=== PATIENT | male | born 1960 | race African-American/Black ===

== ENCOUNTER 2018-09-20 10:34 | Emergency (ER) | payer SELFPAY ==
[~2018-09-20] VITALS: Ht 188 cm; Wt 80.0 kg
[2018-09-20 10:56] VITALS: BP 115/72
[2018-09-20] MEDS ORDERED: KETOROLAC 60MG/2ML VIAL IM STA (11:54)
[2018-09-20] MEDS ORDERED: LIDOCAINE HCL/PF 1% 10 MG/ML 5ML VIAL IJ ONE (12:00)
[2018-09-20] MEDS ORDERED: BACITRACIN ZINC OINT UDPKT TOP ONE ×2 (12:00→14:00)
== END 2018-09-20 14:01 | disposition home or self-care (01) ==
LOC: ER 10:34
DX: S60.561A Insect bite (nonvenomous) of right hand, initial encounter (principal); L02.511 Cutaneous abscess of right hand; E78.00 Pure hypercholesterolemia, unspecified; F17.200 Nicotine dependence, unspecified, uncomplicated; Z91.018 Allergy to other foods; W57.XXXA Bitten or stung by nonvenomous insect and other nonvenomous arthropods, initial encounter; Y93.89 Activity, other specified; Y92.89 Other specified places as the place of occurrence of the external cause; Y99.8 Other external cause status
CPT/HCPCS: 99283; J1885; J3490; Z7610

== ENCOUNTER 2018-09-22 13:01 | Inpatient (IN) | payer SELFPAY ==
[~2018-09-22] VITALS: Ht 188 cm; Wt 78.9 kg
[2018-09-22] MEDS ORDERED: PIPERACILLIN/TAZ 3.375G PREMIX 50 ML IV ONE (15:15)
[2018-09-22] MEDS ORDERED: SODIUM CHLORIDE 0.9% 1000ML BAG (SEPSIS BOLUS) IV ONE (15:15)
[2018-09-22] MEDS ORDERED: VANCOMYCIN 1 G PREMIX 200 ML IV ONE (15:15)
[2018-09-22 15:36] LABS: EOSINOPHILS % 2.6 % (0.0-5.0); HEMATOCRIT. 39.9 % (42.0-52.0); HEMOGLOBIN. 13.3 g/dL (14.0-18.0); LYMPHOCYTES % 18.7 % (20.0-50.0); MEAN CORPUSCULAR HEMOGLOBIN 25.2 pg (28.0-32.0); MEAN CORPUSCULAR VOLUME 75.8 fL (80.0-94.0); MEAN PLATELET VOLUME 8.1 fl (7.4-10.4); MONOCYTES % 8.5 % (2.0-8.0); NEUTROPHILS % 69.2 % (40.0-76.0); PLATELET 528 x1000/uL (130-400); RED BLOOD CELL COUNT 5.27 mill/uL (4.7-6.1); RED CELL DISTRIBUTION WIDTH 16.4 % (11.6-14.6)
[2018-09-22 15:40] LABS: CHLORIDE 105 mEq/L (98-107)
[2018-09-22 15:41] LABS: PROTHROMBIN TIME 10.4 sec (9.6-11.0)
[2018-09-22] MEDS ORDERED: MAGNESIUM/ALUMINUM HYDROXIDE/SIMETHICONE 30ML UDC PO PRN (19:15)
[2018-09-22] MEDS ORDERED: CLONIDINE 0.1MG TABLET PO PRN (19:15)
[2018-09-22] MEDS ORDERED: TEMAZEPAM 15MG CAPSULE PO PRN (19:15)
[2018-09-22] MEDS ORDERED: ONDANSETRON HCL 4MG/2ML INJ IV PRN (19:15)
[2018-09-22] MEDS ORDERED: VANCOMYCIN 1 G PREMIX 200 ML IV SCH (19:15)
[2018-09-22] MEDS ORDERED: ACETAMINOPHEN 325MG TABLET PO PRN (19:15)
[2018-09-22] MEDS ORDERED: IPRATROPIUM/ALBUTEROL 0.5-3(2.5)MG/3ML NEB INH PRN (19:15)
[2018-09-22] MEDS ORDERED: MAGNESIUM HYDROXIDE 400MG/5ML 30ML UDC PO PRN (19:15)
[2018-09-22] MEDS ORDERED: DIPHENHYDRAMINE 50MG/ML VIAL IV PRN (19:15)
[2018-09-22] MEDS ORDERED: MIRT45TA59 MT (19:41)
[2018-09-22] MEDS ORDERED: QUET300T2 MT (19:43)
[2018-09-22 20:00] VITALS: BP 120/72
[2018-09-22] MEDS ORDERED: ENOXAPARIN 40MG/0.4ML SYR SUBCUT SCH (20:00)
[2018-09-22 20:14] VITALS: BP 134/79
[2018-09-22] MEDS ORDERED: MIRTAZAPINE 15MG TABLET PO SCH (21:00)
[2018-09-22] MEDS ORDERED: QUETIAPINE FUMARATE 100MG TABLET PO SCH (21:00)
[2018-09-22] MEDS: VANCOMYCIN 1 G PREMIX 200 ML IV SCH (21:32)
[2018-09-22] MEDS: SODIUM CHLORIDE 0.9% INJ 3ML FLUSH IVF SCH (21:32)
[2018-09-22] MEDS: PIPERACILLIN/TAZ 3.375G PREMIX 50 ML IV SCH (22:57)
[2018-09-23] VITALS: BP 107/52
[2018-09-23 04:00] VITALS: BP 101/61
[2018-09-23] MEDS: SODIUM CHLORIDE 0.9% INJ 3ML FLUSH IVF SCH ×2 (05:13→14:00)
[2018-09-23] MEDS: VANCOMYCIN 1 G PREMIX 200 ML IV SCH ×2 (05:13→13:16)
[2018-09-23] MEDS: PIPERACILLIN/TAZ 3.375G PREMIX 50 ML IV SCH ×2 (06:47→15:35)
[2018-09-23 08:00] VITALS: BP 108/64
[2018-09-23] MEDS ORDERED: LIDOCAINE HCL/EPINEPHRINE 1%-EPI 1:100,000 20 ML VIAL INFIL ONE (10:30)
[2018-09-23 12:00] VITALS: BP 137/74
[2018-09-23 13:51] LABS: VANCOMYCIN TROUGH 12.7 ug/mL (5.0-10.0)
[2018-09-23 16:00] VITALS: BP 110/60
[2018-09-23 17:41] VITALS: BP 110/60
== END 2018-09-23 18:07 | disposition home health service (06) | DRG 383 ==
LOC: ER 13:01 → 6EST 17:28 → EDBEDREQ 17:32 → EDBEDREQTM 17:32 → EDBEDREQSVC 17:32 → ENRESERV 18:02
PROVIDERS: ADMIT Internal Medicine; ATTEND Internal Medicine
PROC: 0JBG0ZZ Excision of Right Lower Arm Subcutaneous Tissue and Fascia, Open Approach (ICD-10-PCS; principal; 2018-09-23)
DX: L03.113 Cellulitis of right upper limb (principal); D64.9 Anemia, unspecified; E78.00 Pure hypercholesterolemia, unspecified; F17.210 Nicotine dependence, cigarettes, uncomplicated; F19.10 Other psychoactive substance abuse, uncomplicated; F99 Mental disorder, not otherwise specified; L02.413 Cutaneous abscess of right upper limb; Z91.018 Allergy to other foods; Z82.0 Family history of epilepsy and other diseases of the nervous system; Z79.899 Other long term (current) drug therapy
CPT/HCPCS: 36415; 71045; 80202; 83605; 84134; 84145; 87070; 87075; 87077; 93005; 96374; 99285; J2543; J3370; J3490; J7030; J7040

== ENCOUNTER 2018-09-28 10:14 | Emergency (ER) | payer SELFPAY ==
[~2018-09-28] VITALS: Ht 188 cm; Wt 81.0 kg
[~2018-09-28 10:14] MED LIST: MIRT45TA59 MT; QUET300T2 MT
[2018-09-28 12:15] VITALS: BP 125/69
== END 2018-09-28 12:22 | disposition home or self-care (01) ==
LOC: ER 10:14
DX: Z48.00 Encounter for change or removal of nonsurgical wound dressing (principal)
CPT/HCPCS: 99283

== ENCOUNTER 2019-04-07 06:10 | Emergency (ER) | payer MEDICAID ==
[~2019-04-07] VITALS: Ht 188 cm; Wt 80.0 kg
[2019-04-07] MEDS ORDERED: ACETAMINOPHEN 325MG TABLET PO ONE (07:15)
[2019-04-07 08:45] VITALS: BP 130/79
== END 2019-04-07 09:28 | disposition home or self-care (01) ==
LOC: ER 06:10
DX: S92.251A Displaced fracture of navicular [scaphoid] of right foot, initial encounter for closed fracture (principal); W10.8XXA Fall (on) (from) other stairs and steps, initial encounter; Y93.89 Activity, other specified; Y92.89 Other specified places as the place of occurrence of the external cause; Y99.8 Other external cause status; F17.290 Nicotine dependence, other tobacco product, uncomplicated; E78.00 Pure hypercholesterolemia, unspecified; Z91.018 Allergy to other foods
CPT/HCPCS: 29125; 73110; 73130; 99283

== ENCOUNTER 2021-09-02 13:32 | Emergency (ER) | payer MEDICAID, OTHER ==
[~2021-09-02] VITALS: Ht 188 cm; Wt 92.0 kg
[2021-09-02 13:37] VITALS: BP 138/103
[2021-09-02 15:06] LABS: BASOPHILS % 0.7 % (0.0-2.0); EOSINOPHILS % 1.8 % (0.0-5.0); HEMATOCRIT. 43.6 % (42.0-52.0); HEMOGLOBIN. 14.3 g/dL (14.0-18.0); LYMPHOCYTES % 15.4 % (20.0-50.0); MEAN CORPUSCULAR HEMOGLOBIN 25.8 pg (28.0-32.0); MEAN PLATELET VOLUME 8.4 fl (7.4-10.4); MONOCYTES % 7.8 % (2.0-8.0); NEUTROPHILS % 74.3 % (40.0-76.0); PLATELET 458 x1000/uL (130-400); RED BLOOD CELL COUNT 5.53 mill/uL (4.7-6.1)
[2021-09-02 15:23] LABS: CHLORIDE 108 mEq/L (98-107)
[2021-09-02] MEDS ORDERED: GABA-290 MT (17:32)
== END 2021-09-02 17:54 | disposition home or self-care (01) ==
LOC: ER 13:32
DX: R51.9 Headache, unspecified (principal); R55 Syncope and collapse; I10 Essential (primary) hypertension; Z86.59 Personal history of other mental and behavioral disorders; Z91.018 Allergy to other foods; S01.132A Puncture wound without foreign body of left eyelid and periocular area, initial encounter; W34.00XA Accidental discharge from unspecified firearms or gun, initial encounter; Y93.89 Activity, other specified; Y92.89 Other specified places as the place of occurrence of the external cause; Y99.8 Other external cause status
CPT/HCPCS: 36415; 71045; 80053; 83880; 84484; 85025; 93005; 99285